=== PATIENT | female | born 2005 | race Caucasian/White ===

== ENCOUNTER 2025-01-25 09:09 | Outpatient (REF) | payer OTHER, SELFPAY ==
--- NOTE | ~2025-01-25 | US_ITS ---
EXAMINATION: US PELVIS TRANSABDOMINAL AND TRANSVAGINAL HISTORY: LEFT SIDED PELVIC PAIN, R/O CYST COMPARISON: There are no prior studies available for comparison. TECHNIQUE: Transabdominal and endovaginal real-time 2D parada-scale ultrasound was performed. FINDINGS: Uterus: The uterus is normal in size, measuring 8.7 x 3.7 x 5.8 cm. The uterus has an arcuate configuration. Myometrium has a normal echotexture. No fibroids are identified. Endometrium: The endometrial stripe measures 9 mm in thickness. An IUD is seen in appropriate position in the endometrial canal. Right ovary: The right ovary measures 2.9 x 1.9 x 1.8 cm. The right ovary is normal in size and echotexture. Left ovary: The left ovary measures 2.9 x 1.8 x 2.4 cm. The left ovary is normal in size and echotexture. Pelvic fluid: none. US/US pelvic and transvaginal IMPRESSION: The uterus has an arcuate configuration. An IUD is seen in appropriate position in the endometrial canal. Electronically signed by: Danis Yancey MD 01/25/2025 11:10 AM [facility] [place]
== END 2025-01-25 09:10 | disposition home or self-care (01) ==
LOC: HO.UMASIMG 09:09
PROVIDERS: Visit Provider Family Medicine
DX: R10.20 Pelvic and perineal pain unspecified side (principal)
CPT/HCPCS: 76830; 76856

== ENCOUNTER → 2025-01-25 10:13 | Outpatient (BNV) | payer OTHER, SELFPAY | PROVIDERS: Visit Provider Radiology Diagnostic Radiology | DX: R10.22 Pelvic and perineal pain left side (principal); Z97.5 Presence of (intrauterine) contraceptive device | CPT/HCPCS: 76830; 76856 ==